=== PATIENT | female | born 1980 | race Caucasian/White ===

== ENCOUNTER 2022-02-11 04:38 | Emergency (ER) | payer MEDICAID, OTHER ==
[~2022-02-11] VITALS: Ht 157.4 cm; Wt 73.9 kg
--- NOTE | 2022-02-11 04:48 | ED Upper Extremity ---
General Stated Complaint: FALL/RIGHT ELBOW INJURY Source: patient Exam Limitations: no limitations (ROSALINE HORVATH) History of Present Illness Date Seen by Provider: February 11, 2022 Time Seen by Provider: 04:37 Initial Comments Patient to the ER by private conveyance chief complaint just prior to arrival she was carrying her bags up the stairs at her friend's house and she tripped on the last stair landing on her right elbow. She is had a broken twice in the past. Is been repaired surgically by [facility]. She has not had anything for the pain and rates it as severe. She is not having any numbness or tingling. (ROSALINE HORVATH) Allergies and Home Medications Allergies Coded Allergies: No Known Drug Allergies (Unverified , 02/11/22) Patient Home Medication List Home Medication List Reviewed: Yes (ROSALINE HORVATH) Review of Systems Constitutional: No chills, No diaphoresis EENTM: No ear discharge, No ear pain Respiratory: No cough, No short of breath Cardiovascular: No chest pain, No edema Gastrointestinal: No abdominal pain, No constipation, No diarrhea, No nausea Genitourinary: No discharge, No dysuria Control/STD Prophylaxis: None Musculoskeletal: see HPI; No back pain; joint pain (ROSALINE HORVATH) All Other Systems Reviewed Negative Unless Noted: Yes (ROSALINE HORVATH) Past Dlsulac-Zqykto-Mfyafo Hx Patient Social History Tobacco Use?: No Use of E-Cig and/or Vaping dev: No (ROSALINE HORVATH) Physical Exam Vital Signs Vital Signs - First Documented 02/11/22 02/11/22 04:45 05:51 Temp 36.4 Pulse 88 Resp 24 B/P (MAP) 139/95 (110) Pulse Ox 98 O2 Delivery Room Air (CHRIS JANSEN MD) Vital Signs Capillary Refill : (ROSALINE HORVATH) Height, Weight, BMI Height: '" Weight: lbs. oz. kg; BMI Method: General Appearance: WD/WN, moderate distress HEENT: PERRL/EOMI, pharynx normal Neck: full range of motion, supple, normal inspection Cardiovascular: normal peripheral pulses, regular rate, rhythm Respiratory: lungs clear, normal breath sounds, no respiratory distress, no accessory muscle use Elbow/Forearm: Right, asymmetry, bone tenderness, deformity, ecchymosis, limited ROM, pain, soft tissue tenderness Wrist: Yes normal inspection, Yes non-tender, Yes no evidence of injury, Yes normal ROM, Yes abrasions Hand: normal inspection, non-tender, no evidence of injury, normal ROM, Right Neurologic/Tendon: normal sensation, normal motor functions, normal tendon functions, responds to pain, no evidence tendon injury Neurologic/Psychiatric: no motor/sensory deficits, alert, normal mood/affect, oriented x 3 Skin: normal color, warm/dry (ROSALINE HORVATH) Procedures/Interventions Procedure: Conscious sedation for closed reduction of right elbow Patient Education: Explained Benefits Agreement on procedure with pt: Yes Breath Sounds per Auscultation: Clear Heart Sounds per Auscultation: Regular Airway Exam: Mouth opens >2 fingers, Neck Full Range of Motion, Visulation of Uvula Sedation Adminstration Time: 05:52 Total Time spent in 0605 Patient tolerated sedation well. We did get adequate relaxation so that we could reduce her right elbow Re-examination Time: 06:25 Re-examination Patient is alert, oriented and answering questions appropriately. Her pain is under adequate control. (ROSALINE HORVATH) Splinting and Joint Reduction : Location: Right elbow ulna and radius Pre-Proc Neuro Vasc Exam: normal Post-Proc Neuro Vasc Exam: normal Progress On first attempt we were able to reduce her radius and ulna under direct traction, supination of the right forearm and flexion. Patient tolerated procedure well. Post reduction x-rays reviewed. Reduction Attempts: 1 Pre-Procedure NV Exam: Yes post joint reduction film: joint reduced Klaus wrap: Yes Hand-Made Type: fiberglass (Sugar-tong right arm and a sling, size large) (ROSALINE HORVATH) Progress/Results/Core Measures Results/Orders My Orders Orders - CHRIS JANSEN MD Tramadol Tablet (Ultram Tablet) (02/11/22 06:45) (CHRIS JANSEN MD) Medications Given in ED Current Medications Medications Dose Ordered Sig/Suzanna Route Start Time Stop Time Status Last Admin Dose Admin Ketamine HCl 75 mg ONCE ONCE IV 02/11/22 05:45 02/11/22 05:46 DC 02/11/22 05:47 75 MG Ketorolac Tromethamine 60 mg ONCE ONCE IM 02/11/22 05:00 02/11/22 05:02 DC 02/11/22 05:00 60 MG Tramadol HCl 50 mg ONCE ONCE PO 02/11/22 06:45 02/11/22 06:46 DC 02/11/22 06:40 50 MG (CHRIS JANSEN MD) Vital Signs/I&O 02/11/22 02/11/22 02/11/22 02/11/22 04:45 05:51 05:52 05:56 Temp 36.4 Pulse 88 86 96 Resp 24 19 20 B/P (MAP) 139/95 (110) 102/81 155/114 Pulse Ox 98 100 93 O2 Delivery Room Air Room Air Room Air 02/11/22 02/11/22 02/11/22 06:05 06:16 07:07 Pulse 112 112 112 Resp 22 12 17 B/P (MAP) 154/113 167/119 130/80 Pulse Ox 96 95 95 (CHRIS JANSEN MD) Progress Progress Note : Time: 06:27 Progress Note Patient declined pain meds because morphine does not work and fentanyl makes her hallucinate. She did tolerate the ketamine quite well. Turned over care to Dr. Jansen until she is out of sedation and can go home with some oral pain medication with follow-up with her orthopedic surgeon at [facility]. (ROSALINE HORVATH) Progress Note #1: Time: 06:46 Progress Note Patient care assumed from Dr Horvath while sedation wears off. She is currently awake, alert and (seemingly) at her baseline mentation. She is "allergic" to, it seems all narcotics, but did state she would try a tramadol for her pain. On review of the patient's post reduction xrays, it is of note she has a dislocated prox radial head fx and possible coronoid process fracture. the elbow is reduced. Will talk to orthopedics. Will have to call outlying facility as we have no call coverage today. Progress Note #2: Time: 07:26 Progress Note notified by nursing staff that the patient is getting irate due to the wait to talk to her ortho surgeon. She is refusing to wait for me to talk to him and a page is currently out to him, we are awaiting call back. Nursing tried their best to offer comfort measures however, the patient would not wait for follow up instructions, splint care instructions, pain medication prescription, etc. She demanded to be let out of the department, signed an AMA form and left. My plan is to still talk to Dr Gonzalez, her prior ortho doctor and advise him of the fracture and the fact she refused to stay but that she plans to call his office. The patient 25 min ago advised me she would be returning to [place], [place] (her home town) either Friday or Friday of this week. At the time of my last evaluation of her (about 30 min ago) she was in a sugar- tong splint and sling. Good cap refill at the finger tips, NVI to the RUE. I did attempt to [place] [facility] we were technologically incapable of doing this from our facility. Progress Note #3: Time: 07:[address] Gonzalez called back at this time and was good with our eval and treatment/splinting. He stated when she called the office, they would be happy to see her in follow up this week. No further instructions at this time. (CHRIS JANSEN MD) Diagnostic Imaging Diagonstic Imaging: Xray Comments [facility], [place] NAME: DAYLIN MESSINA [facility] REC#: [id number] PT STATUS: REG ER : 1980 PHYSICIAN: ROSALINE HORVATH MD ADMIT DATE: 02/11/22/ER Draft Date of Exam:02/11/22 ELBOW, RIGHT, 2 VIEW EXAMINATION: Right elbow radiographs, 2 views. COMPARISON: None. HISTORY: 41-year-old female, right elbow pain. Dislocation. FINDINGS: The distal humerus is abnormally anteriorly located relative to the elbow joint and abnormally medially located relative to the radial head. Radial head is dislocated. There is a small ossification near the proximal ulna on the frontal view measuring approximately 4 x 3 mm in size consistent with a displaced fracture fragment. The distal humerus is projecting to be perched on the coronoid process. There is incompletely imaged sideplate and screw fixation hardware at the level of the distal humerus. There is a sizable fracture fragment measuring approximately 20 x 10 mm in size near the base of the coronoid which may relate to a displaced radial head fracture. IMPRESSION: 1. The distal humerus is dislocated at the elbow joint. 2. Radial head dislocation. 3. 4 x 3 mm fracture fragment adjacent to the proximal ulna. 4. Suspected sizable displaced radial head fracture fragment. Dictated on workstation # [id number] Dict: 02/11/22 0607 Trans: 02/11/2245 [facility] [id number] Interpreted by: NAVI ALBRECHT MD Electronically signed by: Diagonstic Imaging: Xray Comments [facility], [place] NAME: DAYLIN MESSINA [facility] REC#: [id number] PT STATUS: REG ER : 1980 PHYSICIAN: ROSALINE HORVATH MD ADMIT DATE: 02/11/22/ER Draft Date of Exam:02/11/22 ELBOW, RIGHT, 2 VIEW EXAMINATION: Right elbow radiographs, 2 views. COMPARISON: February 11, 2022 at 0534 hours. HISTORY: 41-year-old female, post reduction of right elbow dislocation. FINDINGS: There is interval improved alignment at the level of the elbow joint. There is a displaced fracture of the anterior aspect of the radial head and neck with the displaced fracture fragment measuring approximately 20 x 10 mm in size which is abnormally rotated. The previously noted smaller fracture fragment adjacent to the proximal ulna is not as well seen on the current exam. There is sideplate and screw fixation hardware at the level of the distal humerus. IMPRESSION: 1. Sizable displaced fracture of the radial head with a displaced fracture fragment measuring approximately 20 x 10 mm in size. 2. Interval improved alignment at the level of the elbow joint which is not currently dislocated. 3. Previously noted smaller displaced fracture fragment is not as well seen currently and potentially could relate to a displaced coronoid process fracture. Fracture characterization may be more optimal with dedicated CT right elbow without contrast. Dictated on workstation # [id number] Dict: 02/11/22 0610 Trans: 02/11/2248 [facility] [id number] Interpreted by: NAVI ALBRECHT MD Electronically signed by: (CHRIS JANSEN MD) Departure Impression Primary Impression: Dislocated elbow Qualified Codes: S53.104A - Unspecified dislocation of right ulnohumeral joint, initial encounter Additional Impressions: Closed fracture of radial head Qualified Codes: S52.121A - Displaced fracture of head of right radius, initial encounter for closed fracture Closed fracture of coronoid process of right ulna Qualified Codes: S52.041A - Displaced fracture of coronoid process of right ulna, initial encounter for closed fracture Disposition: 07 AGAINST MEDICAL ADVICE Condition: Against Medical Advice Departure-Patient Inst. Referrals: NO,LOCAL PHYSICIAN (PCP/Family) Primary Care Physician Patient Instructions: Moderate Sedation in Adults (DC), Dislocated Elbow Add. Discharge Instructions: Make a follow-up appointment in the next 1 to 2 weeks with your orthopedic surgeon to discuss appropriate repair of the torn ligaments in your right elbow. Keep the splint and sling on for the next week. You may take it out and remove for bathing if you need to. Thoroughly dry your skin and then reapply the splint and wrap. If you have numbness and tingling in your hand or fingers then take the wrap off and rewrap it looser. ROSALINE HORVATH February 11, 2022 04:48 CHRIS JANSEN MD February 11, 2022 06:50
[2022-02-11] MEDS ORDERED: KETOROLAC 60 MG/2 ML VIAL IM ONE (05:00)
[2022-02-11] MEDS ORDERED: KETOROLAC 30 MG/ML VIAL IVP ONE (05:00)
[2022-02-11] MEDS ORDERED: KETAMINE HCL 100 MG/ML 5 ML VIAL IV ONE (05:45)
[2022-02-11] MEDS: fentaNYL INJ 100 MCG/2 ML AMP IVP ONE ×2 (05:46→05:50)
[2022-02-11] MEDS ORDERED: MIDAZOLAM 2 MG/2 ML (VERSED) VIAL ONE (05:58)
--- NOTE | 2022-02-11 06:46 | Diagnostic Imaging Report ---
EXAMINATION: Right elbow radiographs, 2 views. COMPARISON: None. HISTORY: 41-year-old female, right elbow pain. Dislocation. FINDINGS: The distal humerus is abnormally anteriorly located relative to the elbow joint and abnormally medially located relative to the radial head. Radial head is dislocated. There is a small ossification near the proximal ulna on the frontal view measuring approximately 4 x 3 mm in size consistent with a displaced fracture fragment. The distal humerus is projecting to be perched on the coronoid process. There is incompletely imaged sideplate and screw fixation hardware at the level of the distal humerus. There is a sizable fracture fragment measuring approximately 20 x 10 mm in size near the base of the coronoid which may relate to a displaced radial head fracture. IMPRESSION: 1. The distal humerus is dislocated at the elbow joint. 2. Radial head dislocation. 3. 4 x 3 mm fracture fragment adjacent to the proximal ulna. 4. Suspected sizable displaced radial head fracture fragment. Dictated by: Dictated on workstation # [id number]
--- NOTE | 2022-02-11 06:48 | Diagnostic Imaging Report ---
EXAMINATION: Right elbow radiographs, 2 views. COMPARISON: February 11, 2022 at 0534 hours. HISTORY: 41-year-old female, post reduction of right elbow dislocation. FINDINGS: There is interval improved alignment at the level of the elbow joint. There is a displaced fracture of the anterior aspect of the radial head and neck with the displaced fracture fragment measuring approximately 20 x 10 mm in size which is abnormally rotated. The previously noted smaller fracture fragment adjacent to the proximal ulna is not as well seen on the current exam. There is sideplate and screw fixation hardware at the level of the distal humerus. IMPRESSION: 1. Sizable displaced fracture of the radial head with a displaced fracture fragment measuring approximately 20 x 10 mm in size. 2. Interval improved alignment at the level of the elbow joint which is not currently dislocated. 3. Previously noted smaller displaced fracture fragment is not as well seen currently and potentially could relate to a displaced coronoid process fracture. Fracture characterization may be more optimal with dedicated CT right elbow without contrast. Dictated by: Dictated on workstation # [id number]
[2022-02-11 07:07] VITALS: BP 130/80
== END 2022-02-11 07:30 | disposition left against medical advice (07) ==
LOC: ER 04:42
DX: S52.121A Displaced fracture of head of right radius, initial encounter for closed fracture (principal); S52.041A Displaced fracture of coronoid process of right ulna, initial encounter for closed fracture; S53.104A Unspecified dislocation of right ulnohumeral joint, initial encounter; W10.9XXA Fall (on) (from) unspecified stairs and steps, initial encounter; Y92.008 Other place in unspecified non-institutional (private) residence as the place of occurrence of the external cause
CPT/HCPCS: 29105; 73070; 93041